=== PATIENT | female | born 2000 | race Caucasian/White ===

== ENCOUNTER 2024-12-30 22:26 | Emergency (ER) | payer MEDICAID | END 2024-12-30 22:51 | disposition home or self-care (01) | LOC: JP.ED 22:26 | DX: L50.9 Urticaria, unspecified (principal); F17.200 Nicotine dependence, unspecified, uncomplicated | CPT/HCPCS: 99283 ==

== ENCOUNTER 2025-02-24 16:18 | Emergency (ER) | payer MEDICAID | END 2025-02-24 19:10 | disposition home or self-care (01) | LOC: JP.ED 16:18 | DX: O03.9 Complete or unspecified spontaneous abortion without complication (principal) | CPT/HCPCS: 36415; 84702; 99284; J2791; 36430 ==